=== PATIENT | male | born 1960 | race Caucasian/White ===

== ENCOUNTER 2017-06-13 05:32 | Day surgery (SDC) | payer BC ==
[~2017-06-13] VITALS: Ht 177.8 cm; Wt 145.5 kg
--- NOTE | ~2017-06-13 | OP ---
PATIENT NAME: ROXANNE REBOLLEDO MEDICAL RECORD: [id number] :58 LOCATION:D.OPS ADMISSION DATE: SURGEON: SHANI VERMA MD DATE OF OPERATION: 06/13/2017 PREOPERATIVE DIAGNOSES: 1. History of colon polyps in need of surveillance colonoscopy. 2. Family history of colon cancer. 3. Hematochezia, occasional. POSTOPERATIVE DIAGNOSES: 1. History of colon polyps in need of surveillance colonoscopy. 2. Family history of colon cancer. 3. Hematochezia, occasional. 4. No evidence of polyps or masses. 5. Normal appearing colon and rectum. 6. Normal appearing ileum. PROCEDURES: Total colonoscopy to cecum. SURGEON: Shani Verma MD MICRO COMPUTER SPECIALIST: None. BLOOD LOSS: Minimal. ANESTHESIA: IV sedation. COMPLICATIONS: None. The risks, possible complications, and alternatives to procedure were explained to the patient. He elects to proceed. ENDOSCOPIC COURSE: The patient was conveyed to endoscopy suite electively on 06/13/2017. IV sedation was induced by the anesthesia staff. The patient was placed in the Whalen position. A digital rectal examination was performed. Prostate was symmetric and without nodules. A colonoscope was inserted through the anus. It was easily advanced to the cecum. The prep was adequate. I intubated the ileum which appeared normal. I slowly withdrew the endoscope. I irrigated and aspirated extensively. The pullback was greater than an 18-minute pullback. A combination of direct imaging as well as narrow band imaging were reutilized. A retroflexed view was obtained in the rectum. I then unretroflexed the scope and removed it under direct vision. There is no need for the patient to follow up with me in the office. I will see him at work. I will plan for his next colonoscopy to take place in 3 years. TRANSINT:[id number] Voice Confirmation ID: [id number] DOCUMENT ID: [id number] OPERATIVE REPORT [id number] KESHADEANDREROXANNESHANI MAYS MD at 1157 CC: GILBERT ROGEL MD [id number] DICTATION DATE: 06/13/17 0908 WEB PRODUCER: 06/13/17 1136 [facility] 06/13/17 [place] [address]
--- NOTE | ~2017-06-13 | HP ---
PATIENT: ROXANNE REBOLLEDO MEDICAL RECORD: [id number] ACCOUNT: [id number] LOCATION:[facility] : 58 ADMISSION DATE: 06/13/17 HISTORY AND PHYSICAL EXAMINATION CHIEF COMPLAINT: History of colon polyps. HISTORY OF PRESENT ILLNESS: The patient is here for surveillance colonoscopy. His last colonoscopy was about 4 years ago. He has had a total of 7 colonoscopies. Each time, colon polyps have been found except one time. He has had no abdominal pain. Some rectal bleeding. This is a friend of mine that I worked with up in [place]. ALLERGIES: No known drug allergies. HOME MEDICATIONS: Benadryl, ProAir, Lasix, Coreg, Cozaar, hydrochlorothiazide, Lyrica, aspirin, Crestor, Voltaren, [place], Tylenol, Prilosec, and Glucophage. PAST MEDICAL AND SURGICAL HISTORY: COPD, sleep apnea, asthma, hypertension, congestive heart failure, gastroesophageal reflux, lka-zpodhch-djjguckzv diabetes mellitus, history of cataract surgery, history of colonoscopy, and history of colon polyps. FAMILY HISTORY: Positive for colon cancer. PHYSICAL EXAMINATION: GENERAL: The patient does not appear acutely ill. He does not appear chronically ill. VITAL SIGNS: Reviewed. EARS: External ears appear normal. EYES: Extraocular movements are intact. NECK: Trachea is midline. CHEST: No intercostal retractions. PULMONARY: Nonlabored and no stridor. IMPRESSION: 1. History of colon polyps. 2. Family history of colon cancer. PLAN: Surveillance colonoscopy. TRANSINT:[id number] Voice Confirmation ID: [id number] DOCUMENT ID: [id number] SHANI VERMA MD at 1157 CC: GILBERT ROGEL MD [id number] DICTATION DATE: 06/13/17 0827 LEATHER BELT LOOP CUTTER: 06/13/17 0944 [facility] 06/13/17 [place] [id number]
[~2017-06-13 05:32] MED LIST: ACETAMINOPHEN325 MG PO; AMBIEN10 MG PO; ASPIRIN325 MG PO; BENADRYL25 MG PO; COZAAR100 MG PO; FISH OIL PO; FLOVENT DI50 MCG/DIS INH; HYDROCHLOROTHIA25 MG PO; LYRICA50 MG PO; MOTRIN PO; PRILOSEC10 MG PO; PRILOSEC20 MG PO; PROAIR HFA8.5 GM INH
[2017-06-13 06:26] LABS: HEMATOCRIT 35.8 % (42.0-54.0); HEMOGLOBIN 12.2 g/dL (13.5-17.5); MCH 29.3 pg (26.0-34.0); MCHC 34.1 g/dL (31.0-37.0); MCV 86.1 fL (80.0-100.0); MEAN PLATELET VOLUME 10.1 fL (7.4-10.4); RBC 4.16 10x6/uL (4.20-6.10); RDW 13.8 % (11.5-14.5); WBC 6.3 10x3/uL (4.8-10.8)
[2017-06-13 06:37] LABS: CALCIUM 9.7 mg/dL (8.5-10.1); CARBON DIOXIDE 28.3 mmol/L (21.0-32.0); CREATININE - SERUM 1.2 mg/dL (0.6-1.3); POTASSIUM - SERUM 3.3 mmol/L (3.5-5.1)
[2017-06-13] MEDS ORDERED: COREG25 MG PO (07:03)
[2017-06-13] MEDS ORDERED: VOLTAREN75 MG PO (07:03)
[2017-06-13] MEDS ORDERED: ADVAIR 250/501 DISK INH (07:04)
[2017-06-13] MEDS ORDERED: CRESTOR10 MG PO (07:04)
[2017-06-13] MEDS ORDERED: POTASSIUM CHLO10 ME1 PO (07:05)
[2017-06-13] MEDS ORDERED: HYDROCODONE-APA1 TAB PO (07:05)
[2017-06-13] MEDS ORDERED: LASIX80 MG PO (07:05)
[2017-06-13] MEDS ORDERED: GLUCOPHAGE1000 MG PO (07:07)
[2017-06-13 07:10] VITALS: BP 101/55; Ht 177.8 cm; Wt 145.5 kg
== END 2017-06-13 10:12 | disposition home or self-care (01) ==
LOC: D.OPS 05:32
PROVIDERS: Surgery
DX: Z80.0 Family history of malignant neoplasm of digestive organs (principal); Z86.010 Personal history of colon polyps; J45.909 Unspecified asthma, uncomplicated; J44.9 Chronic obstructive pulmonary disease, unspecified; I50.9 Heart failure, unspecified; E11.9 Type 2 diabetes mellitus without complications; K21.9 Gastro-esophageal reflux disease without esophagitis; I10 Essential (primary) hypertension; E78.00 Pure hypercholesterolemia, unspecified; G47.33 Obstructive sleep apnea (adult) (pediatric); E66.9 Obesity, unspecified; Z01.812 Encounter for preprocedural laboratory examination

== ENCOUNTER 2020-06-09 07:41 | Day surgery (SDC) | payer BC ==
[~2020-06-09] VITALS: Ht 177.8 cm; Wt 156.8 kg
[~2020-06-09 07:41] MED LIST changes: +ADVAIR 250/501 DISK INH; +COREG25 MG PO; +CRESTOR10 MG PO; +GLUCOPHAGE1000 MG PO; +HYDROCODONE-APA1 TAB PO; +LASIX80 MG PO; +POTASSIUM CHLO10 ME1 PO; +VOLTAREN75 MG PO
[2020-06-09 08:21] LABS: BASOPHILS 0.3 % (0-2); EOSINOPHILS 3.3 % (0-7); HEMATOCRIT 36.8 % (42.0-54.0); HEMOGLOBIN 11.7 g/dL (13.5-17.5); IMMATURE GRANULOCYTES 0.5 % (0-5); LYMPHOCYTE ABS# 1.93 10x3/uL (1.32-3.57); LYMPHOCYTES 25.3 % (15-50); MCHC 31.8 g/dL (31.0-37.0); MCV 75.4 fL (80.0-100.0); MEAN PLATELET VOLUME 9.6 fL (7.4-10.4); NEUTROPHIL ABS# 5.01 10x3/uL (1.78-5.38); NEUTROPHILS 65.6 % (40-80); PLATELET COUNT 186 10x3/uL (130-400); RBC 4.88 10x6/uL (4.20-6.10); RDW 18.2 % (11.5-14.5); WBC 7.6 10x3/uL (4.8-10.8)
[2020-06-09 08:30] LABS: CALCIUM 8.4 mg/dL (8.5-10.1); CARBON DIOXIDE 30.8 mmol/L (21.0-32.0); CREATININE - SERUM 1.2 mg/dL (0.6-1.3)
[2020-06-09 08:31] LABS: POTASSIUM - SERUM 2.8 mmol/L (3.5-5.1)
[2020-06-09] MEDS ORDERED: LANTUS INS100 UNITS/ (09:55)
[2020-06-09] MEDS ORDERED: [UNRECOGNIZED DRUG - OTHER] (10:04)
[2020-06-09] MEDS ORDERED: [UNRECOGNIZED DRUG - OTHER] (10:04)
[2020-06-09 10:09] VITALS: BP 147/79; Ht 177.8 cm; Wt 156.8 kg
--- NOTE | 2020-06-09 14:15 | NUR ---
RIGHT WRIST PIV DC'D WITH TIP INTACT. DISCHARGE INSTRUCTIONS REVIEWED WITH PATIENT AND SPOUSE, PATIENT DRESSING IN PERSONAL CLOTHING
--- NOTE | 2020-06-09 16:58 | OP ---
PATIENT NAME: ROXANNE REBOLLEDO MEDICAL RECORD: [id number] :58 LOCATION:D.OPS ADMISSION DATE: SURGEON: JOSH VERMA MD DATE OF OPERATION: 06/09/2020 PREOPERATIVE DIAGNOSES: 1. Dysphagia. 2. Gastroesophageal reflux. 3. History of duodenal peptic ulcer disease. 4. Family history of colon cancer. 5. Personal history of colon polyps. POSTOPERATIVE DIAGNOSES: 1. Dysphagia. 2. Gastroesophageal reflux. 3. History of duodenal peptic ulcer disease. 4. Family history of colon cancer. 5. Personal history of colon polyps. 6. Two gastric polyps, also moderate antral gastritis with acute ulcers. 7. Hiatal hernia. 8. No colonic polyps or masses. PROCEDURE: 1. Esophagogastroduodenoscopy with antral and distal esophageal biopsies. 2. Esophageal dilation with ewfutzt-sku-uibhtigs balloon to 54-Serbian. 3. Gastric hot biopsy forceps polypectomies x2. 4. Total colonoscopy to cecum. SURGEON: Josh Verma MD ROUTE SALES SPECIALIST: None. BLOOD LOSS: Minimal. ANESTHESIA: IV sedation. COMPLICATIONS: None. The risks, possible complications, and alternatives to the procedure were discussed with the patient previously. ENDOSCOPIC COURSE: The patient was conveyed to the endoscopy suite electively on 06/09/2020. IV sedation was induced by the anesthesia staff. A bite block was inserted. A gastroscope was inserted into the mouth. It was advanced easily into the hypopharynx. The esophagus was easily intubated as well as stomach and duodenum. Upon withdrawal, retroflexed and angulus views were obtained. Antral biopsies were obtained. I then advanced a gqscpep-rxq-luwybtpc balloon. I sequentially dilated the entire length of the esophagus to 54-Serbian. I then reintubated the esophagus. Biopsies were taken at the Z-line. This was to rule out Velazquez's esophagus. I reintubated the stomach. Two hot biopsy forceps gastric polypectomies were performed. I then unretroflexed the scope and removed it under direct vision. The patient was turned 180 degrees and placed in the Whalen position. Digital rectal examination was performed. A colonoscope was inserted through the anus. OPERATIVE REPORT [id number] ROXANNE REBOLLEDO It was easily advanced to the cecum. The prep was good. I slowly withdrew the endoscope. A combination of normal imaging and narrow band imaging were utilized. I dragged the folds. The pullback was greater than a 14-minute pullback. A retroflex view was obtained in the rectum. I then unretroflexed the scope and removed it under direct vision. This is a friend of mine. There is no need for him to have a postoperative visit. I will call him by phone and tell him of the endoscopic results. I will plan for his next surveillance colonoscopy to take place in 3 years. TRANSINT:[id number] Voice Confirmation ID: [id number] DOCUMENT ID: [id number] JOSH VERMA MD at 1658 CC: [id number] DICTATION DATE: 06/09/20 1336 PRESS CLEANER: 06/09/20 1610 [facility] 06/09/20 [facility] [address] [place] [address]
--- NOTE | 2020-06-09 16:58 | HP ---
PATIENT: ROXANNE REBOLLEDO MEDICAL RECORD: [id number] ACCOUNT: [id number] LOCATION:D.[facility] : 58 ADMISSION DATE: 06/09/20 PCP: KEYLA MAZARIEGOS MD HISTORY AND PHYSICAL EXAMINATION HISTORY OF PRESENT ILLNESS: The patient is here for upper and lower endoscopy. He has been having volume reflux. Additionally, he has some dysphagia. He has a history of peptic ulcer disease in his duodenum and is having some epigastric abdominal pain. Also, history of colon polyps and strong history of colon cancer. HOME MEDICATIONS: Reviewed. ALLERGIES: No known drug allergies. SOCIAL HISTORY: Nonsmoker. PAST MEDICAL AND SURGICAL HISTORY: COPD, sleep apnea, hypertension, congestive heart failure, insulin-dependent diabetes mellitus, history of right shoulder pain, history of fatty liver disease, history of cervical herniation. REVIEW OF SYSTEMS: Negative for CVA or seizures. PHYSICAL EXAMINATION: GENERAL: The patient does not appear acutely ill. He does not appear chronically ill. VITAL SIGNS: Reviewed. EARS: External ears appear normal. EYES: Extraocular movements are intact. NECK: Trachea is midline. CHEST: No intercostal retractions. PULMONARY: Nonlabored. No stridor. IMPRESSION: 1. History of peptic ulcer disease. 2. Gastroesophageal reflux. 3. Dysphagia. 4. History of colon polyps. 5. Family history of colon cancer. PLAN: EGD with esophageal dilation and colonoscopy. TRANSINT:[id number] Voice Confirmation ID: [id number] DOCUMENT ID: [id number] cc: Dr. Sharmin Mazariegos Jr. [phone] Magda Price, unknown location HISTORY AND PHYSICAL [id number] CHRISTINAROXANNE GUARDADO SHANI JIANG MD at 1651 CC: DR. SHARMIN MAZARIEGOS JR [phone] DICTATION DATE: 06/09/20 1219 PARBOILER: 06/09/20 1305 [facility] 06/09/20 [place] [id number]
== END 2020-06-09 14:30 | disposition home or self-care (01) ==
LOC: D.OPS 07:41
PROVIDERS: Anesthesiology; ATTEND Surgery
DX: R13.10 Dysphagia, unspecified (principal); K21.9 Gastro-esophageal reflux disease without esophagitis; Z87.11 Personal history of peptic ulcer disease; Z80.0 Family history of malignant neoplasm of digestive organs; Z86.010 Personal history of colon polyps; K31.7 Polyp of stomach and duodenum; K29.70 Gastritis, unspecified, without bleeding; K44.9 Diaphragmatic hernia without obstruction or gangrene; J44.9 Chronic obstructive pulmonary disease, unspecified; I10 Essential (primary) hypertension; I50.9 Heart failure, unspecified; E11.9 Type 2 diabetes mellitus without complications; Z79.4 Long term (current) use of insulin; K76.0 Fatty (change of) liver, not elsewhere classified